=== PATIENT | female | born 1940 | race Caucasian/White ===

== ENCOUNTER → 2018-07-14 09:04 | Outpatient (CLI) | payer MEDICARE, SELFPAY ==
[2018-07-14 11:03] LABS: Thyroid Stimulating Hormone 4.96 uIU/mL (0.47-4.68)
[2018-07-16 16:15] LABS: Anti Thyroglobulin Antibody < 1 IU/mL (< 2); Thyroid Peroxidase Antibodies < 1 IU/mL (< 9)
== END ==
PROVIDERS: Visit Provider Internal Medicine
DX: E03.9 Hypothyroidism, unspecified (principal); R94.6 Abnormal results of thyroid function studies
CPT/HCPCS: 36415; 84443; 86376; 86800

== ENCOUNTER → 2019-06-24 08:13 | Outpatient (CLI) | payer MEDICARE, SELFPAY ==
[2019-06-24 08:31] LABS: Bacteria Urine None Seen; WBC Urine None Seen (0-5/HPF)
[2019-06-24 09:10] LABS: Add Manual Diff / Slide Review NO; Basophils Absolute Auto 100 /uL (0-100); Basophils Percent Auto 0.6 % (0-2); Eosinophils Absolute Auto 200 /uL (0-450); Hematocrit 42.3 % (36-46); Hemoglobin 14.6 g/dL (12.0-16.0); Lymphocytes Absolute Auto 2100 /uL (1100-4500); Lymphocytes Percent Auto 26.4 % (25-40); Mean Corpuscular HGB Conc 34.5 % (30-36); Monocytes Absolute Auto 600 /uL (0-900); Monocytes Percent Auto 7.9 % (3-14); Neutrophils Absolute Auto 5000 /uL (1500-7000); Neutrophils Percent Auto 63.1 % (50-75); Platelet Count 140 X10^3/uL (150-400); Red Blood Cell Count 4.55 X10^6/uL (4.0-5.2); Red Cell Distribution Width 12.8 % (11.6-14.8); White Blood Cell Count 7.9 X10^3/uL (4.5-11.0)
[2019-06-24 09:21] LABS: Alanine Aminotransferase 23 IU/L (9-52); Albumin 4.5 g/dL (3.5-5.0); Albumin Globulin Ratio 1.5 (1.0-2.8); Alkaline Phosphatase 57 U/L (38-126); Aspartate Aminotransferase 28 IU/L (14-36); BUN Creatinine Ratio 28.6 (6-22); Bilirubin Total 1.2 mg/dL (0.2-1.3); Blood Urea Nitrogen 20 mg/dL (7-17); Carbon Dioxide 28 mmol/L (22-32); Chloride 101 mmol/L (98-107); Cholesterol 132 mg/dL (140-199); Estimated Glomerular Filt Rate > 60.0 mL/min (>60); Glucose 110 mg/dL (80-110); HDL Cholesterol 58 mg/dL (40-60); HEMOLYSIS < 15 (0-50); LDL Cholesterol Calculated 52 mg/dL (<100); Potassium 4.3 mmol/L (3.4-5.1); Sodium 139 mmol/L (137-145); Total Protein 7.5 g/dL (6.3-8.2); Triglycerides 110 mg/dL (35-150)
[2019-06-24 09:52] LABS: Appearance Urine UA CLEAR; Bilirubin Urine UA NEGATIVE (NEGATIVE); Color Urine UA YELLOW; Glucose Urine UA NEGATIVE (Negative); Ketones Urine UA NEGATIVE (NEGATIVE); Leukocyte Esterase Urine UA NEGATIVE (NEGATIVE); Nitrite Urine UA NEGATIVE (Negative); Occult Blood Urine UA 2+ (Negative); Protein Urine UA NEGATIVE (Negative); Specific Gravity Urine UA 1.015 (1.000-1.035); Urobilinogen Urine UA 0.2 E.U./dL (0.2)
[2019-06-24 09:53] LABS: pH Urine UA 5.5 (4.5-8.0)
[2019-06-24 09:56] LABS: RBC Urine 5-10/HPF (0-5/HPF); Squamous Epithelial Cell Urine 1-5 /HPF (0-5/HPF)
[2019-06-24 10:21] LABS: Thyroid Stimulating Hormone 4.97 uIU/mL (0.47-4.68)
== END ==
PROVIDERS: Family Provider Internal Medicine Cardiovascular Disease; Visit Provider Internal Medicine
DX: I25.10 Atherosclerotic heart disease of native coronary artery without angina pectoris (principal); I10 Essential (primary) hypertension; I51.7 Cardiomegaly; E78.5 Hyperlipidemia, unspecified
CPT/HCPCS: 36415; 80053; 80061; 81001; 84443; 85025

== ENCOUNTER → 2022-06-15 07:42 | Outpatient (CLI) | payer MEDICARE, SELFPAY ==
[2022-06-15 09:10] LABS: Alanine Aminotransferase 15 IU/L (<35); Albumin 4.5 g/dL (3.5-5.0); Albumin Globulin Ratio 1.4 (1.0-2.8); Alkaline Phosphatase 55 U/L (38-126); Aspartate Aminotransferase 26 IU/L (14-36); BUN Creatinine Ratio 23.3 (6-22); Bilirubin Total 1.4 mg/dL (0.2-1.3); Blood Urea Nitrogen 20 mg/dL (7-17); Calcium 9.8 mg/dL (8.4-10.2); Carbon Dioxide 29 mmol/L (22-32); Chloride 99 mmol/L (98-107); Cholesterol 143 mg/dL (140-199); Estimated Glomerular Filt Rate > 60 mL/min (>60); Globulin 3.3 g/dL (1.7-4.1); Glucose 122 mg/dL (80-110); HDL Cholesterol 68 mg/dL (40-60); HEMOLYSIS < 15 (0-50); LDL Cholesterol Calculated 50 mg/dL (<100); Sodium 139 mmol/L (137-145); Total Protein 7.8 g/dL (6.3-8.2); Triglycerides 123 mg/dL (35-150)
[2022-06-17 11:26] LABS: Add Manual Diff / Slide Review NO; Basophils Absolute Auto 100 /uL (0-100); Basophils Percent Auto 0.8 % (0-2); Eosinophils Absolute Auto 200 /uL (0-450); Eosinophils Percent Auto 2.8 % (2-4); Hematocrit 42.5 % (36-46); Hemoglobin 14.3 g/dL (12.0-16.0); Lymphocytes Absolute Auto 2400 /uL (1100-4500); Lymphocytes Percent Auto 31.7 % (25-40); Mean Corpuscular HGB Conc 33.5 % (30-36); Mean Corpuscular Volume 95.4 fL (80-100); Monocytes Absolute Auto 600 /uL (0-900); Monocytes Percent Auto 7.6 % (3-14); Neutrophils Absolute Auto 4400 /uL (1500-7000); Neutrophils Percent Auto 57.1 % (50-75); Platelet Count 137 X10^3/uL (150-400); Red Blood Cell Count 4.46 X10^6/uL (4.0-5.2); White Blood Cell Count 7.7 X10^3/uL (4.5-11.0)
[2022-06-17 12:00] LABS: TSH w/ Reflex to FT4 6.66 uIU/mL (0.47-4.68)
[2022-06-17 12:34] LABS: Free T4, Direct Thyroxine 1.71 ng/dL (0.78-2.19)
== END ==
PROVIDERS: Family Provider Internal Medicine Cardiovascular Disease; PCP Internal Medicine; Referring Provider Internal Medicine Cardiovascular Disease; Visit Provider Internal Medicine Cardiovascular Disease
DX: I25.10 Atherosclerotic heart disease of native coronary artery without angina pectoris (principal); E78.00 Pure hypercholesterolemia, unspecified; I51.7 Cardiomegaly
CPT/HCPCS: 36415; 80053; 80061; 84439; 84443; 85025

== ENCOUNTER → 2025-01-24 13:08 | Outpatient (CLI) | payer MEDICARE, SELFPAY | PROVIDERS: Family Provider Internal Medicine Cardiovascular Disease; PCP Internal Medicine; Referring Provider Orthopaedic Surgery Foot and Ankle Surgery; Visit Provider Surgery | DX: L97.522 Non-pressure chronic ulcer of other part of left foot with fat layer exposed (principal); I73.00 Raynaud's syndrome without gangrene | CPT/HCPCS: 11042; 87070; 87075; 87205; 99203; 99214 ==

== ENCOUNTER → 2025-01-31 13:17 | Outpatient (CLI) | payer MEDICARE, SELFPAY | LOC: WC 13:19 | PROVIDERS: Family Provider Internal Medicine Cardiovascular Disease; PCP Internal Medicine; Referring Provider Internal Medicine; Visit Provider Surgery | DX: B99.9 Unspecified infectious disease (principal); L97.522 Non-pressure chronic ulcer of other part of left foot with fat layer exposed; I73.00 Raynaud's syndrome without gangrene | CPT/HCPCS: 11042 ==

== ENCOUNTER → 2025-02-09 09:05 | Outpatient (CLI) | payer MEDICARE, SELFPAY | LOC: WC 09:06 | PROVIDERS: Family Provider Internal Medicine Cardiovascular Disease; PCP Internal Medicine; Referring Provider Internal Medicine; Visit Provider Surgery | DX: B99.9 Unspecified infectious disease (principal); L97.522 Non-pressure chronic ulcer of other part of left foot with fat layer exposed; M20.42 Other hammer toe(s) (acquired), left foot | CPT/HCPCS: 97602; 99213 ==

== ENCOUNTER → 2025-02-15 09:04 | Outpatient (CLI) | payer MEDICARE, SELFPAY | PROVIDERS: Family Provider Internal Medicine Cardiovascular Disease; PCP Internal Medicine; Referring Provider Internal Medicine; Visit Provider Surgery | DX: L97.522 Non-pressure chronic ulcer of other part of left foot with fat layer exposed (principal); I73.00 Raynaud's syndrome without gangrene | CPT/HCPCS: 99213 ==

== ENCOUNTER → 2025-03-01 09:05 | Outpatient (CLI) | payer MEDICARE, SELFPAY | LOC: WC 09:07 | PROVIDERS: Family Provider Internal Medicine Cardiovascular Disease; PCP Internal Medicine; Referring Provider Internal Medicine; Visit Provider Surgery | DX: Z87.2 Personal history of diseases of the skin and subcutaneous tissue (principal); R23.4 Changes in skin texture | CPT/HCPCS: 99213 ==

== ENCOUNTER → 2025-06-22 07:39 | Outpatient (CLI) | payer MEDICARE, SELFPAY ==
[2025-06-22 08:30] LABS: Add Manual Diff / Slide Review NO; Hematocrit 40.2 % (36-46); Hemoglobin 13.6 g/dL (12.0-16.0); Lymphocytes Absolute Auto 2200 /uL (1100-4500); Mean Corpuscular HGB Conc 33.9 % (30-36); Mean Corpuscular Hemoglobin 31.4 PG (26-34); Mean Corpuscular Volume 92.5 fL (80-100); Platelet Count 178 X10^3/uL (150-400)
[2025-06-22 09:07] LABS: Alanine Aminotransferase 16 IU/L (<35); Albumin 4.1 g/dL (3.5-5.0); Albumin Globulin Ratio 1.4 (1.0-2.8); Alkaline Phosphatase 80 U/L (38-126); Blood Urea Nitrogen 24 mg/dL (7-17); Calcium 9.9 mg/dL (8.4-10.2); Carbon Dioxide 31 mmol/L (22-32); Chloride 102 mmol/L (98-107); Cholesterol 129 mg/dL (140-199); Estimated Glomerular Filt Rate 56 mL/min (>60); Globulin 3.0 g/dL (1.7-4.1); Glucose 127 mg/dL (70-99); HDL Cholesterol 65 mg/dL (40-60); HEMOLYSIS < 15 (0-50); Potassium 4.7 mmol/L (3.4-5.1); Sodium 136 mmol/L (137-145); Total Protein 7.1 g/dL (6.3-8.2); Triglycerides 109 mg/dL (35-150)
== END ==
PROVIDERS: Family Provider Internal Medicine Cardiovascular Disease; PCP Internal Medicine; Referring Provider Internal Medicine; Visit Provider Internal Medicine
DX: E78.00 Pure hypercholesterolemia, unspecified (principal); I25.10 Atherosclerotic heart disease of native coronary artery without angina pectoris
CPT/HCPCS: 36415; 80053; 80061; 85025